=== PATIENT | female | born 1995 | race Caucasian/White ===

== ENCOUNTER 2016-10-11 13:14 | Emergency (ER) | payer OTHER ==
[2016-10-11 13:25] VITALS: O2SAT 97
--- NOTE | 2016-10-11 13:42 | EDPHY ---
H & P Time Seen by Provider: 10/11/16 13:31 HPI/ROS: CHIEF COMPLAINT: Allergic reaction HISTORY OF PRESENT ILLNESS: The patient is a 21 year old female presenting with allergic reaction. The patient has no known food allergies. She ate a desert with a lot of cashews last night and thinks that may have caused the reaction. She felt itchy last night. This morning she noticed facial swelling and rash. The rash is located on her face and hands. She took Benadryl at 8am this morning , but continues to have swelling and rash. The patient also recalls a recent hike where she may have come in contact with a poisonous plant. REVIEW OF SYSTEMS: Aside from elements discussed in the HPI, a comprehensive 10-point review of systems was reviewed and is negative. Past Medical/Surgical History: Denies Smoking Status: Never smoked Physical Exam: General Appearance: Alert, no distress Eyes: Pupils equal and round, no periorbital swelling ENT, Mouth: Mucous membranes moist, no oral swelling Neck: Normal inspection, no stridor Respiratory: Lungs are clear to auscultation, no wheezing Cardiovascular: Regular rate and rhythm Neurological: A&O, nonfocal, normal gait Skin: Papular rash on erythematous base on forehead lower lip, right lower eyelid, and neck. Few papules on dorsalis part of hands. Extremities: No swelling Psychiatric: Mood and affect normal Constitutional: Initial Vital Signs Temperature (C) 37 C 10/11/16 13:22 Heart Rate 68 10/11/16 13:22 Respiratory Rate 20 10/11/16 13:22 Blood Pressure 106/68 10/11/16 13:22 O2 Sat (%) 97 10/11/16 13:22 O2 Delivery Mode Room Air Allergies/Adverse Reactions: No Known Allergies Allergy (Unverified 10/11/16 13:22) Home Medications: Medication Instructions Recorded BENADRYL 10/11/16 predniSONE 1 tab PO DAILY #15 tab 10/11/16 Departure - Departure Disposition: Home, Routine, Self-Care Clinical Impression: Contact dermatitis Qualifiers: Contact dermatitis type: allergic Contact dermatitis trigger: unspecified trigger Qualifier Code: (L23.9) Allergic contact dermatitis, unspecified cause Condition: Good Instructions: Contact Dermatitis (ED) Additional Instructions: Take Benadryl at night and Claritin during the day for as long as itchiness persists. Take prednisone as prescribed. Followup with an traffic rate analyst when possible. Referrals: Brenda Alonso MD [Medical Doctor] - As per Instructions (Primary care physician referral) Prescriptions: predniSONE 1 tab PO DAILY #15 tab Report Scribed for: Stefany Perdue Report Scribed by: Ashley Luis Date of Report: 10/11/16 Time of Report: 13:34 Physician Review and Approval Statement: 10/11/16 13:34 Portions of this note were transcribed by a medical supervisor. I personally performed the history, physical exam, and medical decision-making; and confirmed the accuracy of the information in the transcribed note.
[2016-10-11] MEDS ORDERED: predniSONE 20 MG TAB PO ONE (13:58)
[2016-10-11 14:14] VITALS: BP 126/80; PULSE 73; RESP 18; TEMP 97.5
== END 2016-10-11 14:14 | disposition home or self-care (01) ==
DX: L23.9 Allergic contact dermatitis, unspecified cause (principal)